=== PATIENT | male | born 1965 | race Caucasian/White ===

== ENCOUNTER 2025-10-28 00:26 | Emergency (ER) | payer BC, OTHER ==
[~2025-10-28] VITALS: Ht 180.3 cm; Wt 77.1 kg
[~2025-10-28 00:26] MED LIST: NO REPORTABLE MEDS
[2025-10-28 02:38] LABS: PLATELET COUNT (AUTO) 156 K/uL (150-450); RED BLOOD CELL COUNT(AUTO) 5.06 MIL/uL (4.5-6.0); RED CELL DISTRIBUTION WIDTH 14.6 % (11.5-15.0); WHITE BLOOD COUNT (AUTO) 5.8 K/uL (4.3-11.0)
[2025-10-28 02:43] LABS: CALCIUM, SERUM 8.4 mg/dL (8.5-10.1); CREATININE 1.0 mg/dL (0.6-1.3); SODIUM SERUM 142 mmol/L (136-145); UREA NITROGEN, BLOOD 13 mg/dL (7-18)
[2025-10-28 02:49] LABS: ASPARTATE AMINOTRANSFERASE 18 U/L (15-37); TOTAL PROTEIN, SERUM 6.7 g/dL (6.4-8.2)
[2025-10-28 06:03] VITALS: BP 110/66; TEMP 97.8; O2SAT 96
== END 2025-10-28 06:03 | disposition home or self-care (01) ==
LOC: ER 01:18
DX: R09.81 Nasal congestion (principal); T39.1X5A Adverse effect of 4-Aminophenol derivatives, initial encounter; Z90.5 Acquired absence of kidney; Y92.89 Other specified places as the place of occurrence of the external cause
CPT/HCPCS: 36415; 80048-TC; 80076-TC; 85025-TC